=== PATIENT | female | born 1960 | race Caucasian/White ===

== ENCOUNTER → 2017-12-16 | Outpatient (CLI) | payer BC ==
--- NOTE | 2017-12-16 13:09 | RADIOLOGY REPORT (SQ) ---
EXAM DESCRIPTION: MRI LT LOWER JOINT WITHOUT COMPLETED DATE/TIME: 12/16/2017 12:52 pm REASON FOR STUDY: HEMARTHROSIS LEFT KNEE M25.062 HEMARTHROSIS, LEFT KNEE COMPARISON: None. TECHNIQUE: Leftknee images acquired and stored on PACS. Multiplanar images include fat sensitive se quences as T1, water sensitive sequences as FST2 or STIR, cartilage sensitive sequences as FSPD, and gradient echo sequences. LIMITATIONS: Motion. FINDINGS: JOINT AND BURSAE: Small effusion. BONE CORTEX AND MARROW: No alteration of signal to suggest marrow replacement. No worrisome bone lesi ons. No occult fracture. ACL: Intact. No degeneration or ganglion cyst. PCL: Intact. MCL: Intact. No periligamentous edema or fluid. LCL: Intact. No periligamentous edema or fluid. MEDIAL MENISCUS: Central intermediate signal without extension to the articular surface. LATERAL MENISCUS: Intact. MEDIAL COMPARTMENT: Cartilage loss. Moderate osteophytes. LATERAL COMPARTMENT: Relatively preserved cartilage. No large osteophytes. PATELLA: Thinning of the patellar cartilage with mild subchondral cyst formation. Small osteophytes. Intact retinaculum. EXTENSOR MECHANISM: Intact. Quadriceps and patella tendons normal. SOFT TISSUES: Victor's cyst measuring about 3 cm in maximum diameter. OTHER: No other significant finding. IMPRESSION: 1. Osteoarthritis medial and patellofemoral compartments, more advanced in the medial compartment. 2. Small effusion. 3. Victor's cyst. TECHNICAL DOCUMENTATION: JOB ID: [id number] Getting[employer]- All Rights Reserved
== END ==
LOC: RAD 11:50
PROVIDERS: ATTEND Family Medicine
DX: M25.062 Hemarthrosis, left knee (principal); M17.12 Unilateral primary osteoarthritis, left knee; M25.462 Effusion, left knee; M71.22 Synovial cyst of popliteal space [Baker], left knee